=== PATIENT | male | born 1945 | race Caucasian/White ===

== ENCOUNTER 2018-06-04 15:10 | Inpatient (IN) | payer MEDICARE, OTHER ==
[~2018-06-04] VITALS: Ht 177.8 cm; Wt 75.3 kg
[2018-06-04] MEDS ORDERED: ASPIRIN 81 MG CHEW TAB PO ONE ×2 (15:45→18:30)
--- NOTE | 2018-06-04 16:15 | Diagnostic Imaging Report ---
EXAMINATION: CHEST SINGLE (PORTABLE) INDICATION: Altered mental status. Memory loss. COMPARISON: None FINDINGS: TUBES and LINES: None. LUNGS: Lungs are well inflated. Lungs are clear. There is no evidence of pneumonia or pulmonary edema. PLEURA: No pleural effusion or pneumothorax. HEART AND MEDIASTINUM: The cardiomediastinal silhouette is unremarkable. BONES AND SOFT TISSUES: No acute osseous lesion. Soft tissues are unremarkable. UPPER ABDOMEN: No free air under the diaphragm. IMPRESSION: No acute thoracic abnormality. Signed by: Dr. Lb Alamo M.D. on 06/04/2018 4:12 PM
--- NOTE | 2018-06-04 16:20 | Diagnostic Imaging Report ---
Exam: Head CT without contrast History: Altered mental status, memory loss, headache Comparison studies: None Technique: Axial images were obtained from the skull base to the vertex. Coronal and sagittal images reconstructed from the axial data. Dose modulation, iterative reconstruction, and/or weight based adjustment of the mA/kV was utilized to reduce the radiation dose to as low as reasonably achievable. Radiation dose: Total DLP: 832 mGy*cm. Estimated effective dose: DLP x 0.015 Intravenous contrast: None Findings: Scalp: Mild swelling in the right frontal scalp. Bones: No fractures, blastic or lytic lesions. Brain sulci: Mildly prominent. Ventricles: Mild compensatory dilatation, slightly greater along the right temporal horn. No hydrocephalus. Extra-axial spaces: No masses, no fluid collection. Parenchyma: No mass, hemorrhage or acute cortical vascular insults. Subtle hypodensities in the periventricular white matter are nonspecific but most compatible with chronic microvascular ischemic changes. There is mild generalized volume loss with mild asymmetric volume loss along the right anteromedial temporal lobe with compensatory dilatation of the right temporal horn. No focal disproportionate lobar brainstem volume loss. Sellar/suprasellar region: No abnormalities. Craniocervical junction: Patent foramen magnum. No Chiari one malformation. Incidental findings: Mild nonspecific polypoid mucosal thickening in the maxillary sinuses and ethmoid air cells. IMPRESSION: 1. Mild right frontal scalp swelling without underlying fracture. 2. No acute intracranial abnormalities. 3. Mild chronic microvascular ischemic changes. 4. Mild generalized volume loss with subtle nonspecific asymmetric volume loss along the right anteromedial temporal lobe. Signed by: Dr. Ken Celeste M.D. on 06/04/2018 4:16 PM
[2018-06-04 16:43] LABS: BASOPHILS % 0.6 % (0.0-1.0); EOSINOPHILS # (AUTO) 0.1 (0.0-0.4); EOSINOPHILS % 1.5 % (0.0-6.0); HEMATOCRIT 44.9 % (38.2-49.6); HEMOGLOBIN 15.2 g/dL (14.0-18.0); LYMPHOCYTES # (AUTO) 2.1 (1.0-3.2); LYMPHOCYTES % 30.9 % (18.0-39.1); MEAN CORPUSCULAR HEMOGLOBIN 30.6 pg (28-32); MEAN CORPUSCULAR HGB CONC 33.9 g/dL (31-35); MEAN CORPUSCULAR VOLUME 90.3 fL (81-99); MONOCYTES # (AUTO) 0.5 (0.2-0.8); MONOCYTES % 7.3 % (4.4-11.3); NEUTROPHILS % 59.6 % (38.7-80.0); PLATELET COUNT 176 x10e3/uL (140-360); RED BLOOD COUNT 4.97 x10e6/uL (4.3-5.7); RED CELL DISTRIBUTION WIDTH 12.9 % (11.7-14.4)
[2018-06-04 17:01] LABS: INR 0.95; PROTHROMBIN TIME 13.6 seconds (11.9-14.5)
[2018-06-04 17:02] LABS: ALANINE AMINOTRANSFERASE 23 IU/L (0-55); ALBUMIN/GLOBULIN RATIO 1.6 (0.8-2.0); ALKALINE PHOSPHATASE 52 IU/L (40-150); ANION GAP 13.7 mmol/L (8-16); BLOOD UREA NITROGEN 14 mg/dL (7-26); BUN/CREATININE RATIO 15 (6-25); CALCIUM 10.5 mg/dL (8.4-10.2); CARBON DIOXIDE 24 mmol/L (22-29); CHLORIDE 108 mmol/L (98-107); CREATINE KINASE 153 IU/L (30-200); CREATININE, SERUM 0.94 mg/dL (0.72-1.25); EST GLOMERULAR FILTRATION RATE > 60 ML/MIN (60-); GLUCOSE 103 mg/dL (74-118); LIPASE 32 U/L (8-78); MAGNESIUM 2.3 MG/DL (1.3-2.1); PARTIAL THROMBOPLASTIN TIME 28.5 seconds (23.8-35.5); POTASSIUM 3.7 mmol/L (3.5-5.1); SODIUM 142 mmol/L (136-145)
[2018-06-04 17:25] LABS: CLARITY,URINE SL CLOUDY (CLEAR); COLOR,URINE YELLOW (YELLOW); LEUKOCYTE ESTERASE ,URINE NEGATIVE (NEGATIVE); NITRITE,URINE NEGATIVE (NEGATIVE); PROTEIN,URINE DIPSTICK TRACE (NEGATIVE)
[2018-06-04 17:25] LABS: THYROID STIMULATING HORMONE 0.844 uIU/mL (0.350-4.940)
[2018-06-04 17:26] LABS: BILIRUBIN,URINE NEGATIVE (NEGATIVE); KETONES,URINE NEGATIVE (NEGATIVE); URINE UROBILINOGEN 1 mg/dL (0.2 - 1)
[2018-06-04 17:41] LABS: AMORPHOUS SEDIMENT,URINE MODERATE (FEW); BACTERIA,URINE MODERATE /HPF; CALCIUM OXALATE CRYSTALS,UR FEW (FEW); RBC,URINE 0-5 /HPF (0-5); WBC,URINE (MAN) 0-5 /HPF (0-5)
[2018-06-04] MEDS ORDERED: ENOXAPARIN INJ 80 MG/0.8 ML SYR SC STA (18:11)
[2018-06-04] MEDS ORDERED: NITROGLYCERIN 0.4 MG SUBL SL PRN (18:30)
[2018-06-04] MEDS ORDERED: ARICEPT5 MG PO (19:42)
[2018-06-04] MEDS: FAMOTIDINE 20 MG TAB PO SCH (19:43)
[2018-06-04 21:06] VITALS: BP_SYST 158; BP_SYST 173; BP_DIAS 77; BP_DIAS 78
[2018-06-04 22:00] VITALS: BP 158/78
[2018-06-04 22:10] VITALS: BP 158/78
[2018-06-05] VITALS (7 sets, daily range): BP systolic 132–195; BP diastolic 70–80
[2018-06-05 00:30] LABS: CREATINE KINASE 124 IU/L (30-200)
[2018-06-05] MEDS ORDERED: CRESTOR10 MG PO (01:47)
[2018-06-05] MEDS ORDERED: CARVEDILOL3.125 MG PO (01:47)
[2018-06-05] MEDS ORDERED: STOOL SOFTENER100 MG PO (01:47)
[2018-06-05] MEDS ORDERED: ASPIRIN81 MG PO (01:47)
[2018-06-05] MEDS ORDERED: LISINOPRIL10 MG PO (01:47)
[2018-06-05] MEDS ORDERED: MULTI-VITAMIN1 EACH PO (01:47)
[2018-06-05] MEDS: FAMOTIDINE 20 MG TAB PO SCH ×2 (06:07→17:30)
[2018-06-05 06:15] LABS: CHOL/HDL RATIO 2.1 (3.9-4.7); CHOLESTEROL 122 MD/DL (0-199); CREATINE KINASE 101 IU/L (30-200); HDL CHOLESTEROL 59 MG/DL (40-60); LDL CHOLESTEROL 55 MG/DL (60-130); TRIGLYCERIDES 40 MG/DL (0-149)
[2018-06-05] MEDS ORDERED: ASPIRIN 325 MG TAB EC PO SCH (09:00)
--- NOTE | 2018-06-05 12:52 | Consultation ---
DATE OF CONSULTATION: June 05, 2018 CARDIOLOGY CONSULTATION CLINICAL HISTORY: This is a 72-year-old white man with mild dementia, admitted via the emergency room because of similar chest discomfort to his myocardial infarction in 2018. This patient has right bundle branch block. In 2009 he had chest pain, anxiety and shortness of breath, went to [facility] in [place] and Dr. Apollo Albert had inserted a coronary stent. The patient and his are moving to the [facility]. He is currently staying with relatives and wants to have long-term arrangements made here in the [facility]. For approximately 2 to 3 months he has been experiencing mild shortness of breath. However, on the day of admission the discomfort was much more severe, rated 5 on a scale of 10, lasted all day. In fact, he still had some this morning. His enzymes thus far have been negative. Cardiology consultation requested. PAST MEDICAL HISTORY: Is remarkable for hypertension, hyperlipidemia. He denies any diabetes. There is history of dementia, but the patient is still quite functional. PERSONAL/SOCIAL HISTORY: Has not smoked for 30 years. He rarely drinks. He was a dispatch manager. FAMILY HISTORY: Father had coronary artery disease, dementia. Mother had cerebral aneurysm, in her 30s. PAST SURGICAL HISTORY: Included basal cell on the face and the previous coronary stent mentioned. REVIEW OF SYSTEMS: Noncontributory. PHYSICAL EXAMINATION: GENERAL: He is alert, coherent, appears to be comfortable. VITALS: Stable. CARDIAC: Jugular veins are not distended. S1 and S2 are regular. There is no appreciable murmur. LUNGS: Clear. ABDOMEN: Soft. Bowel sounds are present. EXTREMITIES: Show no cyanosis, clubbing or edema. LABORATORY DATA AND DIAGNOSTICS: Electrocardiogram shows sinus rhythm, rate 68 beats per minute, PVCs, right bundle branch block, right axis deviation, possible old anteroseptal myocardial infarction. IMPRESSION: 1. Possible recurrent angina with symptoms that are similar to his myocardial infarction in __2013. Thus far the enzymes are negative. 2. History of myocardial infarction in 2009, treated with coronary stent, presumably in the left anterior descending. 3. Right bundle branch block. 4. Mild dementia. 5. Hypertension. 6. Hyperlipidemia. RECOMMENDATION: Serial enzyme studies. Nuclear stress test. Thank you very much. Job#: [id number] EV cc:BALDEV GRUROLA MD
[2018-06-05] MEDS: CARVEDILOL 3.125 MG TAB PO SCH ×2 (13:00→17:30)
[2018-06-05] MEDS ORDERED: CARVEDILOL 3.125 MG TAB PO SCH (17:00)
[2018-06-05] MEDS ORDERED: LISINOPRIL 10 MG TAB PO SCH (21:00)
[2018-06-05] MEDS: DONEPEZIL HCL 5 MG TAB PO SCH (21:02)
[2018-06-05] MEDS: SIMVASTATIN 40 MG TAB PO SCH (21:02)
[2018-06-05] MEDS: LISINOPRIL 20 MG TAB PO SCH (21:02)
[2018-06-05] MEDS: SERTRALINE HCL 50 MG TAB PO SCH (21:03)
[2018-06-06] VITALS (7 sets, daily range): BP systolic 133–170; BP diastolic 63–83
--- NOTE | 2018-06-06 00:49 | Consultation ---
DATE OF CONSULTATION: June 05, 2018 NEUROLOGY CONSULT NOTE HISTORY OF PRESENT ILLNESS: Mr. Crandall is a 72-year-old right hand dominant man with past medical history significant for hypertension, hyperlipidemia, coronary artery disease, and recently diagnosed dementia of the Alzheimer's type, admitted to [facility] with chest pain. The patient's has requested a neurology consultation as they are in the process of re-locating to the [facility] from [place], [place]. Mr. Crandall is independent in his activities of daily living - bathing, grooming, dressing, and toileting. Both the patient and his endorsed some difficulty in recollecting the names of family members and close friends. Mr. Crandall does not often misplace items. The patient's does report repetition of questions and stories. Mr. Crandall and his live in a house in [place], [place]. Mr. Crandall is responsible for mowing the yard, maintaining the vehicles, and taking out the garbage. Both the patient and his reports he is able to perform these chores without prompting and without difficulty. Mr. Crandall was advised by his neurologist in [place] not to drive. He stopped driving approximately one and a half weeks ago. The patient's runs all the errands for the household. The patient's manages their finances and has always done so. The patient's schedules their appointments and has always done so. Mr. Crandall's administers his medications to him daily. Mr. Crandall reports sleeping well. He endorses a healthy appetite. Both the patient and his report anxiety with some visual hallucinations, especially in the evenings when the patient "is sundowning." There is no known family history of Alzheimer's disease or other memory disorders. Mr. Crandall has undergone an evaluation with a neurologist in [place], [place]. He was prescribed donepezil approximately one and a half weeks ago. He took 5 mg by mouth at bedtime daily for 1 week. For the past 2 days, he has taken donepezil 10 mg by mouth at bedtime daily. Neither the patient nor his had noted side effects associated with taking the medication. REVIEW OF SYSTEMS: Chest pain, memory impairment. Otherwise, the 12-point review of systems is negative. PAST MEDICAL HISTORY: Hypertension, hyperlipidemia, coronary artery disease, anxiety, skin cancer, Alzheimer's disease. PAST SURGICAL HISTORY: Cardiac stents, inguinal hernia repair, resection of skin cancer, tonsillectomy, bilateral cataract removal. PAST HOSPITALIZATIONS: Surgeries/procedures. FAMILY MEDICAL HISTORY: The patient's paternal and maternal grandparents are . Their medical histories are unknown. The patient's father is from natural causes. The patient's mother suddenly when Mr. Crandall was 4 years old. Her cause of is not known. Mr. Crandall had 5 siblings, 4 brothers and 1 sister. One brother is due to agent orange exposure in [place]. The remaining 3 brothers and 1 sister are alive and healthy. Mr. Crandall has 4 children, 3 sons and 1 daughter, all of whom are alive and healthy. SOCIAL HISTORY: The patient is . He is retired. The patient endorses a remote history of tobacco use, but quit smoking cigarettes approximately 30 years ago. The patient does report occasional alcohol use. He does not endorse current or prior recreational drug use. HOME MEDICATIONS: Please see the list of home medications available in the electronic medical record. ALLERGIES: PENICILLIN. NO KNOWN FOOD ALLERGIES. NO KNOWN ALLERGIES TO LATEX. NO KNOWN ALLERGIES TO IODINE OR OTHER CONTRAST MATERIALS. PHYSICAL EXAMINATION: VITAL SIGNS: Height 70 inches, weight 166 pounds, BMI 23.9 kg/sq m. Blood pressure 195/80 mmHg, pulse 59 beats per minute, respiratory rate 18 breaths per minute, oxygen saturation 100% on room air. GENERAL: The patient is awake and alert, does not appear distressed. HEENT: Normocephalic, atraumatic. Pupils are surgical. Moist mucous membranes. NECK: Supple. No appreciable thyromegaly. No appreciable carotid bruits. CARDIOVASCULAR: S1, S2, regular rate and rhythm. No murmurs, rubs, or gallops. RESPIRATORY: Clear to auscultation bilaterally. No wheezes, rhonchi, or rales. EXTREMITIES: The skin is warm and dry. No clubbing, cyanosis, or edema. The posterior tibial and dorsalis pedis pulses are 2+ and symmetric. SKIN: No rashes or lesions. NEUROLOGIC EXAMINATION: MEMORY/ATTENTION: The patient is awake and alert, oriented to person, place (state only), time (day of the week, month, season, year), and minimally to situation. CRANIAL NERVES: Cranial nerve I - not tested. Cranial nerves II, III, IV, and - Pupils are surgical. Extraocular movements intact. No nystagmus. Cranial nerve V - Sensation to light touch and pinprick is intact in the bilateral V1 through V3 distributions. Strength of the temporalis and masseter muscles is within normal limits. Cranial nerve VII - The face is symmetric as are all facial movements. Strength is within normal limits. Cranial nerve VIII - Hearing is diminished to finger rub bilaterally. Cranial nerve IX, X - The soft palate elevates equally and symmetrically. Cranial nerve XI - Normal strength of the bilateral sternocleidomastoid and trapezius muscles. Cranial nerve XII - The tongue protrudes midline and moves symmetrically from side to side. STRENGTH: Bulk is normal. Strength is 5/5 in the bilateral deltoids, biceps, triceps, wrist flexors and extensors, finger flexors and extensors, intrinsic hand muscles, hip flexors, knee flexors and extensors, ankle dorsiflexion and plantarflexion, and intrinsic foot muscles. Tone is normal. DTRs: Deep tendon reflexes are 1+ and symmetric at the triceps, biceps, brachioradialis, patellas, and Achilles'. Plantar responses are flexor bilaterally. SENSATION: Sensation is intact to light touch and pinprick in both arms and both legs. CEREBELLAR: Ghttvo-rtlb-xjbhaq and heel-zuluaga movements are intact without dysmetria or other impairment. GAIT: Deferred. SPEECH: Spontaneous speech is normal without appreciable dysarthria or aphasia. Repetition is intact. INVOLUNTARY MOVEMENTS: None. PRONATOR DRIFT: None. LABORATORY DATA: The patient's comprehensive metabolic panel is significant for a chloride level of 108, calcium of 10.5, magnesium of 2.3, total bilirubin of 2.4. Cardiac enzymes are negative x3. Lipase 32, TSH 0.844. Total cholesterol 122, triglycerides 40, LDL cholesterol 55, HDL cholesterol 59. The CBC with differential and platelets is unremarkable. The coagulation profile is within normal limits. A urinalysis was significant for slightly cloudy urine with trace protein, 1+ blood, moderate amorphous sediment, and moderate urine bacteria. A urine culture is pending. DIAGNOSTIC STUDIES: 1. Chest x-ray, June 04, 2018: No acute thoracic abnormalities. 2. CT of the brain without contrast, June 04, 2018: On my review, there is no evidence of recent large territorial ischemia, hemorrhage, mass, or mass effect. There is diffuse cerebral atrophy, slightly more than expected for age, with asymmetric volume loss along the right anteromedial temporal lobe. There are findings compatible with mild to moderate chronic small-vessel ischemic disease. ASSESSMENT AND PLAN: Mr. Crandall is a 72-year-old man with past medical history as documented, admitted to [facility] on June 04, 2018 with chest pain. At the request of the patient's , a neurology consultation was ordered due to the patient's recent diagnosis of dementia, probably of the Alzheimer's type. Other than disorientation to location and situation, the patient's neurological examination is intact. His laboratory data and other diagnostic studies have been reviewed and are documented above. Mr. Crandall probably has moderately severe dementia of the Alzheimer's type. There may be a component of vascular disease contributing to the patient's memory loss and other cognitive symptoms. RECOMMENDATIONS: As follows: 1. Additional laboratory data will be ordered to complete a dementia evaluation. Those will include: A vitamin B12 level and a rapid plasma reagin. 2. Continue treatment with donepezil 10 mg by mouth at bedtime daily. In the near future, treatment with Namenda will likely be prescribed as well. 3. Both the patient and his endorse anxiety. The patient's reports visual hallucinations and some aggressive behavior. Mr. Crandall will be prescribed sertraline 25 mg by mouth at bedtime daily for treatment of these symptoms. The dose will be gradually titrated over a period of several weeks to effect. 4. Education regarding Alzheimer's disease was provided to the patient and his . Mr. Crandall was encouraged to engage in physical activity for approximately 30 minutes 4 to 5 days per week. He was encouraged to engage in mentally stimulating activities daily. Precautions regarding driving and medication oversight were discussed. 5. Defer treatment of the remaining medical comorbidities to the primary and other services following the patient. Thank you for this consultation. I will continue to follow the patient while he remains in the hospital. TIME SPENT: 70 minutes. Job#: [id number] DR LEUNG
[2018-06-06] MEDS: FAMOTIDINE 20 MG TAB PO SCH ×2 (05:25→16:40)
[2018-06-06] MEDS: ASPIRIN 81 MG CHEW TAB PO SCH (09:59)
[2018-06-06] MEDS: DOCUSATE SODIUM 100 MG CAP PO SCH (09:59)
[2018-06-06] MEDS: CARVEDILOL 3.125 MG TAB PO SCH ×2 (10:00→16:40)
[2018-06-06] MEDS: MULTIVITAMINS/MINERALS TAB PO SCH (10:00)
--- NOTE | 2018-06-06 12:32 | Cardiology Report ---
DATE OF STUDY: June 06, 2018 NUCLEAR STRESS TEST ATTENDING PHYSICIAN: Dr. Baldev Gurrola. A 72-year-old male. The patient exercised for approximately 10 minutes to the fourth stage of the Pola protocol without any complaint or chest pains. EKG showed right bundle branch block. There were PVCs. No abnormality in blood pressure response. The perfusion images showed moderate-sized defect involving the inferior septal apical wall. With rest, the images remained essentially the same. The left ventriculogram showed evidence of anterior apical septal hypokinesis. CONCLUSIONS 1. No definite ischemic region. 2. Inferior septal apical scar. 3. Apical septal anterior hypokinesis consistent with previous coronary artery disease. 4. The ejection fraction with exercise is 38%. 5. Inconclusive electrocardiographic stress test due to right bundle branch block. 6. Premature ventricular contractions noted with exercise. 7. No chest pains with exercise. 1. Normal blood pressure response to exercise. Job#: [id number] LPA cc:DR. BALDEV GURROLA
[2018-06-06] MEDS: SIMVASTATIN 40 MG TAB PO SCH (21:10)
[2018-06-06] MEDS: DONEPEZIL HCL 5 MG TAB PO SCH (21:10)
[2018-06-06] MEDS: SERTRALINE HCL 50 MG TAB PO SCH (21:10)
[2018-06-06] MEDS: LISINOPRIL 20 MG TAB PO SCH (21:10)
[2018-06-07] VITALS (7 sets, daily range): BP systolic 104–179; BP diastolic 55–84
[2018-06-07] MEDS: FAMOTIDINE 20 MG TAB PO SCH ×2 (06:20→17:30)
[2018-06-07] MEDS: DOCUSATE SODIUM 100 MG CAP PO SCH (09:41)
[2018-06-07] MEDS: ASPIRIN 81 MG CHEW TAB PO SCH (09:41)
[2018-06-07] MEDS: ISOSORBIDE MONONITRATE 30 MG TAB CR PO SCH (09:42)
[2018-06-07] MEDS: MULTIVITAMINS/MINERALS TAB PO SCH (09:42)
[2018-06-07] MEDS: CARVEDILOL 3.125 MG TAB PO SCH ×2 (09:42→17:18)
[2018-06-07] MEDS: DONEPEZIL HCL 5 MG TAB PO SCH (20:35)
[2018-06-07] MEDS: SIMVASTATIN 40 MG TAB PO SCH (20:35)
[2018-06-07] MEDS: TRAZODONE HCL 50 MG TAB PO SCH (20:35)
[2018-06-07] MEDS: SERTRALINE HCL 50 MG TAB PO SCH (20:35)
[2018-06-07] MEDS: LISINOPRIL 20 MG TAB PO SCH (21:00)
[2018-06-08] VITALS (9 sets, daily range): BP systolic 113–164; BP diastolic 55–82
[2018-06-08] MEDS: FAMOTIDINE 20 MG TAB PO SCH ×2 (06:22→17:38)
[2018-06-08] MEDS: DOCUSATE SODIUM 100 MG CAP PO SCH (08:18)
[2018-06-08] MEDS: ASPIRIN 81 MG CHEW TAB PO SCH (08:18)
[2018-06-08] MEDS: MULTIVITAMINS/MINERALS TAB PO SCH (08:19)
[2018-06-08] MEDS: CARVEDILOL 3.125 MG TAB PO SCH ×2 (08:19→17:38)
[2018-06-08] MEDS: ISOSORBIDE MONONITRATE 30 MG TAB CR PO SCH (08:20)
[2018-06-08] MEDS: ACETAMINOPHEN 325 MG TAB PO PRN (14:43)
--- NOTE | 2018-06-08 15:05 | Progress Note ---
DATE: June 08, 2018 INTERNAL MEDICINE PROGRESS NOTE SUBJECTIVE: Patient is doing well. No significant complaint. PHYSICAL EXAMINATION VITAL SIGNS: Blood pressure 113/57, temperature 97.2, heart rate 60 per minute, respiratory rate 16 per minute, oxygen saturation 97%. HEART: Regular rhythm. Normal S1, S2 sounds. LUNGS: Clear bilaterally. ABDOMEN: Soft. EXTREMITIES: Show no evidence of cyanosis, edema, or trauma. LABORATORY DATA: On the BMP; sodium 142, potassium 3.7, chloride 108, CO2 of 24, BUN 14, creatinine 0.94, glucose 103. On the CBC; white blood count 6.70, hemoglobin 15.2, hematocrit 44.9, platelet count 166,000. PT 13.6, INR 0.95, PTT 28.5. AST 24, ALT 23, total bilirubin 2.4, and alkaline phosphatase 52. FINAL IMPRESSION 1. Coronary artery disease with unstable angina. He is going for a cardiac catheterization on Sunday. 2. Hypercholesterolemia. 3. Hypertension. PLAN OF TREATMENT: Pepcid 20 mg twice a day, nitroglycerin 0.4 mg sublingual q.5 minute p.r.n. for chest pain, aspirin 81 mg daily, Colace 300 mg daily, lisinopril 20 mg daily, Tylenol 650 mg q.6 hours as needed for pain and fever, Aricept 10 mg daily, carvedilol 3.125 mg twice a day, trazodone 25 mg at bedtime, multivitamin 1 tablet daily, Zoloft 25 mg daily, simvastatin 40 mg daily, isosorbide mononitrate 30 mg daily. Cardiac cath on Sunday and then go from there. Job#: [id number] PKU
[2018-06-08] MEDS: TRAZODONE HCL 50 MG TAB PO SCH (21:02)
[2018-06-08] MEDS: SIMVASTATIN 40 MG TAB PO SCH (21:02)
[2018-06-08] MEDS: SERTRALINE HCL 50 MG TAB PO SCH (21:02)
[2018-06-08] MEDS: DONEPEZIL HCL 5 MG TAB PO SCH (21:02)
[2018-06-08] MEDS: LISINOPRIL 20 MG TAB PO SCH (21:03)
[2018-06-09] VITALS (8 sets, daily range): BP systolic 122–173; BP diastolic 60–78
[2018-06-09] MEDS: FAMOTIDINE 20 MG TAB PO SCH ×2 (06:39→17:32)
[2018-06-09] MEDS: DOCUSATE SODIUM 100 MG CAP PO SCH (08:36)
[2018-06-09] MEDS: ASPIRIN 81 MG CHEW TAB PO SCH (08:36)
[2018-06-09] MEDS: CARVEDILOL 3.125 MG TAB PO SCH ×2 (08:36→17:03)
[2018-06-09] MEDS: ISOSORBIDE MONONITRATE 30 MG TAB CR PO SCH (08:37)
[2018-06-09] MEDS: MULTIVITAMINS/MINERALS TAB PO SCH (08:37)
[2018-06-09] MEDS: ACETAMINOPHEN 325 MG TAB PO PRN ×2 (09:49→21:35)
--- NOTE | 2018-06-09 13:23 | Progress Note ---
DATE: June 09, 2018 INTERNAL MEDICINE PROGRESS NOTE SUBJECTIVE: Patient is doing well. No significant complaint. PHYSICAL EXAM VITAL SIGNS: Blood pressure 128/66, temperature 97.9, heart rate 60 per minute, respiratory rate 18 per minute, oxygen saturation 97%. HEART: Regular rhythm. Normal S1, S2 sounds. LUNGS: Clear bilaterally. ABDOMEN: Soft. LABS: On the BMP; sodium 142, potassium 3.7, chloride 108, CO2 of 24, BUN 14, creatinine 0.94, glucose 103. On the CBC; white blood count 6.70, hemoglobin 15.2, hematocrit 44.9, platelet count 176,000. PT 17.6, INR 0.95, PTT 28.5. AST 24, ALT 23, total bilirubin 2.4, alkaline phosphatase 52. FINAL IMPRESSION 1. Coronary artery disease with unstable angina. 2. Hypercholesterolemia. 3. Hypertension. PLAN OF TREATMENT: Patient is going to have cardiac cath tomorrow. Continue Pepcid 20 mg twice a day, nitroglycerin 0.5 mg q.5 minutes p.r.n. for chest pain, aspirin 81 mg daily, Colace 300 mg daily, lisinopril 20 mg daily, Tylenol 650 mg p.o. q.6 hours as needed for pain or fever, Aricept 10 mg daily, carvedilol 3.125 mg twice a day, trazodone 25 mg at bedtime, multivitamin tablet daily, Zoloft 25 mg daily, simvastatin 40 mg daily, and isosorbide mononitrate 30 mg daily. I discussed the case with the family. Time spent 45 minutes. Job#: [id number] LPA
[2018-06-09] MEDS: SIMVASTATIN 40 MG TAB PO SCH (20:48)
[2018-06-09] MEDS: TRAZODONE HCL 50 MG TAB PO SCH (20:48)
[2018-06-09] MEDS: DONEPEZIL HCL 5 MG TAB PO SCH (20:48)
[2018-06-09] MEDS: SERTRALINE HCL 50 MG TAB PO SCH (20:48)
[2018-06-09] MEDS: LISINOPRIL 20 MG TAB PO SCH (20:48)
[2018-06-10] VITALS: BP 171/78
[2018-06-10 04:20] VITALS: BP 135/73
[2018-06-10] MEDS: FAMOTIDINE 20 MG TAB PO SCH ×2 (05:11→18:30)
[2018-06-10 07:31] VITALS: BP 143/69
[2018-06-10] MEDS: MULTIVITAMINS/MINERALS TAB PO SCH (09:00)
[2018-06-10] MEDS: CARVEDILOL 3.125 MG TAB PO SCH ×2 (09:00→15:10)
[2018-06-10] MEDS: DOCUSATE SODIUM 100 MG CAP PO SCH (09:00)
[2018-06-10] MEDS: ASPIRIN 81 MG CHEW TAB PO SCH (09:00)
[2018-06-10] MEDS: ISOSORBIDE MONONITRATE 30 MG TAB CR PO SCH (09:00)
[2018-06-10] MEDS ORDERED: HEPARIN SOD/SOD CHLORIDE 2,000 ML ONE (09:08)
[2018-06-10] MEDS ORDERED: LIDOCAINE HCL 2% LOCAL 20 ML VIAL ONE (09:08)
[2018-06-10] MEDS ORDERED: FENTANYL CITRATE/PF 100MCG/2 ML INJ ONE (09:08)
[2018-06-10] MEDS ORDERED: MIDAZOLAM HCL 2 MG/2 ML VIAL ONE (09:08)
[2018-06-10] MEDS ORDERED: IOPAMIDOL 370 MG/ML 200 ML INFUS..BTL INJ ONE ×2 (09:09→09:40)
[2018-06-10] MEDS ORDERED: SODIUM CHLORIDE 0.9% 1000ML 1,000 ML ONE (09:09)
[2018-06-10] MEDS ORDERED: SODIUM CHLORIDE 0.9% 1000ML 1,000 ML IV SCH (10:06)
--- NOTE | 2018-06-10 10:36 | Operative Report ---
DATE OF PROCEDURE: June 10, 2018 PROCEDURE: Left heart catheterization. CLINICAL HISTORY: This is a 72-year-old white man admitted via the emergency room because of chest pains. He has a history of previous coronary stenting 10 years ago. The patient states that the pain feels somewhat similar to his heart attack from 10 years ago. After discussing various diagnostic treatment alternatives, they elected to proceed with nuclear stress test, which showed a large fixed inferior septal apical defect. The anterior wall appears to be hypokinetic. Ejection fraction of 38%. It was recommended to the patient that we will treat him medically and consider cardiac catheterization if he has any further chest pains. The patient and family were concerned about the possibility if it is a false negative, nuclear stress test and the fact that ejection fraction was 38% only, wanted to proceed with cardiac catheterization. Risks, benefits and alternatives have been explained and understood. The patient agreed to proceed. PROCEDURE: He was brought to the cardiac catheterization laboratory in a fasting and sedated state. Using aseptic technique, Betadine skin preparation, lidocaine for local anesthesia, the right femoral artery was entered using the modified Seldinger technique without difficulty. A 4-Palauan sheath was inserted in this vessel. Diagnostic coronary angiography was carried out using a 4-Palauan #4 Akua catheter. The LAD stent remains patent. No significant disease was found. Left ventriculogram was carried out using a 4-Palauan pigtail catheter, which showed the apex to be hypokinetic. Ejection fraction was 40%. There was no significant aortic stenosis. All the equipment then withdrawn. Hemostasis achieved by direct pressure. The patient was taken to recovery. CONCLUSION 1. Ischemic cardiomyopathy, ejection fraction 40% with apex being akinetic consistent with previous myocardial infarction. 2. No significant additional disease. 3. Proximal stent remains patent. 4. No evidence of aortic stenosis. Job#: [id number] RI cc:BALDEV GURROLA MD
--- NOTE | 2018-06-10 10:50 | Cardiology Report ---
DATE OF STUDY: June 07, 2018 ECHOCARDIOGRAM M-MODE: Normal chamber sizes. Left ventricular hypertrophy. Diminished left ventricular contractility, especially the apex. Normal mitral, aortic and tricuspid valves. No pericardial effusion. Suboptimal study. SECTOR SCAN: Suboptimal study with limited image quality. Normal chamber sizes. Left ventricular hypertrophy. Diminished left ventricular contractility. Ejection fraction is approximately 40%. The apical septum appears to be akinetic. Aortic valve is mildly sclerotic. Mitral and tricuspid valves are normal. There is no pericardial effusion. CARDIAC DOPPLER STUDY WITH COLOR: There is 1 to 2+ aortic regurgitation. CONCLUSIONS 1. Apical septum is akinetic consistent with ischemic heart disease. 2. Concentric left ventricular hypertrophy with ejection fraction of approximately 40%. 3. Aortic sclerosis with mild to moderate aortic regurgitation. 4. Trace mitral and tricuspid regurgitation, probably not clinically significant. 5. Suboptimal study with limited image quality. Job#: [id number] cc:BALDEV GURROLA MD
[2018-06-10 13:48] VITALS: BP 151/83
[2018-06-10] MEDS: LISINOPRIL 20 MG TAB PO SCH (15:10)
[2018-06-10 16:41] VITALS: BP 158/79
[2018-06-10] MEDS ORDERED: ISOSORBIDE MONO20 MG PO (17:59)
[2018-06-10] MEDS ORDERED: SERTRALINE HCL50 MG PO (18:00)
[2018-06-10] MEDS ORDERED: TRAZODONE HCL50 MG PO (18:01)
[2018-06-10] MEDS ORDERED: ARICEPT5 MG PO (18:01)
[2018-06-10] MEDS ORDERED: SIMVASTATIN40 MG PO (18:02)
[2018-06-10] MEDS ORDERED: ATIVAN1 MG PO (18:03)
--- OUTSIDE RECORDS SUMMARY | 2018-06-18 09:38 | XMS REPORT ---
[facility] Address Unknown Phone Unavailable Care Team Providers Care Exercise Teacher Name Role Phone Patricia GUTIERREZ Unavailable Unavailable Problems This patient has no known problems. Allergies, Adverse Reactions, Alerts This patient has no known allergies or adverse reactions. Medications This patient has no known medications. Results Test Description Test Time Test Comments Text Results Atomic Results Result Comments CHEST SINGLE (PORTABLE) 2018-06-04 16:11:00 [place] [address] Patient Name: LISA VILLEGAS MR #: [id number] : 1945 Age/Sex: 72/M Req #: [id number] Adm Physician: Ordered by: BETTY SERRANO [employer] Report #: [id number] Location: ER Room/Bed: Procedure: [id number] DX/CHEST SINGLE (PORTABLE) Exam Date: 06/04/18 Exam Time: 1550 REPORT STATUS: Signed EXAMINATION: CHEST SINGLE (PORTABLE) INDICATION: Altered mental status. Memory loss. COMPARISON: None FINDINGS: TUBES and LINES: None. LUNGS: Lungs are well inflated. Lungs are clear. There is no evidence of pneumonia or pulmonary edema. PLEURA: No pleural effusion or pneumothorax. HEART AND MEDIASTINUM: The cardiomediastinal silhouette is unremarkable. BONES AND SOFT TISSUES: No acute osseous lesion. Soft tissues are unremarkable. UPPER ABDOMEN: No free air under the diaphragm. IMPRESSION: No acute thoracic abnormality. Signed by: Dr. Lb Alamo M.D. on 06/04/2018 4:12 PM Dictated By: LB ALAMO MD, MD 11 Transcribed By: MICHELA on 06/04/181611 COPY TO: BETTY SERRANO [employer] CT BRAIN WO 2018-06-04 16:11:00 [place] [address] Patient Name: LISA VILLEGAS MR #: [id number] : 1945 Age/Sex: 72/M Req #: [id number] Adm Physician: Ordered by: BETTY SERRANO [employer] Report #: [id number] Location: ER Room/Bed: Procedure: [id number] CT/CT BRAIN WO Exam Date: 06/04/18 Exam Time: 1550 REPORT STATUS: Signed Exam: Head CT without contrast History: Altered mental status, memory loss, headache Comparison studies: None Technique: Axial images were obtained from the skull base to the vertex. Coronal and sagittal images reconstructed from the axial data. Dose modulation, iterative reconstruction, and/or weight based adjustment of the mA/kV was utilized to reduce the radiation dose to as low as reasonably achievable. Radiation dose: Total DLP: 832 mGy*cm. Estimated effective dose: DLP x 0.015 Intravenous contrast: None Findings: Scalp: Mild swelling in the right frontal scalp. Bones: No fractures, blastic or lytic lesions. Brain sulci: Mildly prominent. Ventricles: Mild compensatory dilatation, slightly greater along the right temporal horn. No hydrocephalus. Extra-axial spaces: No masses, no fluid collection. Parenchyma: No mass, hemorrhage or acute cortical vascular insults. Subtle hypodensities in the periventricular white matter are nonspecific but most compatible with chronic microvascular ischemic changes. There is mild generalized volume loss with mild asymmetric volume loss along the right anteromedial temporal lobe with compensatory dilatation of the right temporal horn. No focal disproportionate lobar brainstem volume loss. Sellar/suprasellar region: No abnormalities. Craniocervical junction: Patent foramen magnum. No Chiari one malformation. Incidental findings: Mild nonspecific polypoid mucosal thickening in the maxillary sinuses and ethmoid air cells. IMPRESSION: 1. Mild right frontal scalp swelling without underlying fracture. 2. No acute intracranial abnormalities. 3. Mild chronic microvascular ischemic changes. 4. Mild generalized volume loss with subtle nonspecific asymmetric volume loss along the right anteromedial temporal lobe. Signed by: Dr. Daniel Celeste M.D. on 06/04/2018 4:16 PM Dictated By: DANIEL CELESTE MD 161 Transcribed By: MICHELA on 06/04/18 1619 COPY TO: BETTY SERRANO NP
--- NOTE | 2018-07-31 01:37 | Discharge Summary ---
CHIEF COMPLAINT: Angina at rest. FINAL DIAGNOSES: 1. Dementia. 2. Anxiety. 3. Coronary artery disease. PROCEDURES: Stress test, which proceeded him to a cardiac cath. DISPOSITION: Home. Gbekae[age]ow[age]-old male with known history of coronary artery disease, hypertension, early dementia, presents to the ER with 1-day history of intermittent chest pain, shortness of breath associated with agitation and at times hallucinating. Patient had recently been started on Aricept approximately 2 weeks ago. Has had no other complaints. Does have history of coronary stents 10 years ago. The patient was reviewed and evaluated in the emergency room. Further care and studies were conducted. Patient admitted to the facility for evaluation of chest pain, agitations/hallucinations, coronary artery disease, early dementia, hypertension. Will be requesting a cardiology follow. Home medications will continue. Will obtain urine studies. Also requesting a neurology review through Dr. Sena. Once admitted, the patient was seen by Dr. Sena; and with her review, she feels that the patient probably has moderately severe dementia of Alzheimer's time. There maybe a component of vascular disease contributing to the patient's memory loss and other cognitive symptoms. Agree with current medications. Patient began treatment on the med-surg floor, was on aspirin 325 daily, nitroglycerin was being supplied sublingual 0.4 mg every 5 minutes times 3 for chest pain. Was resting comfortably, was in no acute distress. Vital signs were pretty stable. Laboratory studies were stable. Was undergoing the cardiac workup with Dr. Helms. Cardiac enzymes were negative. Underwent a nuclear stress test. Was now receiving his daily medications. Labs were continued to be stable. Patient was continuing on the donepezil 10 mg. Discussions were being made it will be beneficial to start the patient on Namenda, was continuing on his sertraline. Further care led to a cardiac cath per Dr. Helms. He was given medications at bedtime for insomnia i.e. trazodone. Continuing to receive BP meds. It was noted during the cath that his left anterior descending stent was patent. No new findings were noted on the cath. Clearance was being given for discharge per cardiology. Further stability was noted. He was cleared for release. He was able to be discharged home on June 10, 2018 in stable condition. EKGs were showing sinus bradycardia with occasional premature ventricular complexes, right bundle-branch block, left posterior fascicular block, bifascicular block, possible inferior infarct age undetermined, anteroseptal infarct age undetermined. This led to an echocardiogram showing ejection fraction between 55% and 60%. No evidence of pericardial effusion. Patient then underwent the cardiac cath per Dr. Helms noting that the left anterior descending stent was intact. There was no significant additional disease noted during the catheterization. No intervention was needed. The procedure was terminated. Patient returned to recovery room in good condition. Postop patient responded well and was discharged home. With discharge, patient will continue diet as tolerated. No equipment or supplies necessary. No drains or [place]cl[place] are needed. Activity level, patient was instructed per Dr. Helms to remove the dressing to the right groin on June 11, 2018. No heavy lifting. May shower. No bathing until then. He will be following back up with Dr. Helms within 7 to 10 days, following back up with Dr. Sena in 2 weeks, PCP within 7 to 10 days. Was given a prescription for Aricept 10 mg 1 tablet p.o. daily, isosorbide mononitrate 30 mg p.o. daily, Ativan 0.5 mg 1 tablet p.o. q.6h. p.r.n. for anxiety, simvastatin 40 mg 1 tablet p.o. daily, sertraline 25 mg 1 tablet p.o. daily, carvedilol 3.125 one tablet p.o. b.i.d., trazodone 25 mg 1 tablet p.o. at bedtime, lisinopril 20 mg 1 tablet p.o. daily. Will also continue taking aspirin 81 mg daily, stool softeners 300 mg daily, lorazepam 0.5 mg every 6 hours as needed for anxiety, multivitamins 1 tablet daily. Will be stopping his previous Aricept meds as well as his previous Crestor medications. If he develops any further chest pains or any other similar symptoms, the patient will be contacting his PCP or he will be reporting back to the emergency room. Dictated By: KYLAH Jose Job#: [id number]
== END 2018-06-10 18:51 | disposition home or self-care (01) | DRG 287 ==
LOC: ER 15:10 → ERHOLD 18:44 → MED/SURG 20:57
PROC: 4A023N7 Measurement of Cardiac Sampling and Pressure, Left Heart, Percutaneous Approach (ICD-10-PCS; principal; 2018-06-10)
PROC: B2111ZZ Fluoroscopy of Multiple Coronary Arteries using Low Osmolar Contrast (ICD-10-PCS; 2018-06-10)
PROC: B2151ZZ Fluoroscopy of Left Heart using Low Osmolar Contrast (ICD-10-PCS; 2018-06-10)
DX: I25.119 Atherosclerotic heart disease of native coronary artery with unspecified angina pectoris (principal); F02.81 Dementia in other diseases classified elsewhere, unspecified severity, with behavioral disturbance; I10 Essential (primary) hypertension; Z95.5 Presence of coronary angioplasty implant and graft; I25.2 Old myocardial infarction; I45.10 Unspecified right bundle-branch block; E78.5 Hyperlipidemia, unspecified; G30.9 Alzheimer's disease, unspecified; Z88.0 Allergy status to penicillin; G47.00 Insomnia, unspecified; F32.9 Major depressive disorder, single episode, unspecified; F41.9 Anxiety disorder, unspecified
CPT/HCPCS: 36415; 70450; 71045; 78452; 80053; 80061; 81001; 82550; 82553; 82607; 83690; 83735; 83970; 84443; 84484; 85025; 85610; 85730; 86592; 87040; 87086; 93005; 93017; 93306; 93458; 99284; A9502; C1766; J1650; J2001; J2250; J7030; Q9967